=== PATIENT | female | born 2000 | race Caucasian/White ===

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

== ENCOUNTER 2021-04-16 16:01 | Emergency (ER) | payer OTHER ==
[~2021-04-16] VITALS: Ht 144.7 cm; Wt 81.6 kg
[~2021-04-16 16:01] MED LIST: Kenalog 0.5% Cr15 GM T; VIBRAMYCIN100 MG PO
[2021-04-16] MEDS ORDERED: PREDNISONE20 M1 PO (16:24)
== END 2021-04-16 16:33 | disposition home or self-care (01) ==
LOC: ED 16:01
DX: T63.441A Toxic effect of venom of bees, accidental (unintentional), initial encounter (principal); Z88.8 Allergy status to other drugs, medicaments and biological substances; Z79.899 Other long term (current) drug therapy; Y92.89 Other specified places as the place of occurrence of the external cause

== ENCOUNTER 2025-08-27 00:42 | Emergency (ER) | payer BC ==
[~2025-08-27] VITALS: Ht 147.3 cm; Wt 86.2 kg
[~2025-08-27 00:42] MED LIST changes: +PREDNISONE20 M1 PO
[2025-08-27] MEDS ORDERED: SODIUM CHLORIDE 0.9% 1,000 ML IV ONE (01:30)
[2025-08-27] MEDS ORDERED: Ondansetron Hydrochloride 4 MG/2 ML VIAL IV ONE (01:35)
[2025-08-27 01:44] LABS: BASO # 0.1 10*3/uL (0.0-0.1); BASO % 0.6 % (0.0-1.0); EOS # 0.1 10*3/uL (0.0-0.4); EOS % 0.7 % (1.0-4.0); MEAN CELL VOLUME 82.0 fl (81.0-99.0); MEAN CORPUSCULAR HGB 26.5 pg (27.0-31.0); MEAN PLATELET VOLUME 8.4 fl (9.6-12.3); MONO # 1.1 10*3/uL (0.1-1.0); MONO % 6.2 % (3.0-9.0); NEUT # 13.4 10*3/uL (2.3-7.9); NEUT % 74.7 % (47.0-73.0); NUCLEATED RED BLOOD CELL 0.0 % (0.0-0.0); NUCLEATED RED BLOOD CELL 0.0 10*3/uL (0.0-0.0); PLATELET COUNT AUTOMATED 339 10*3/uL (130-400); RED CELL DISTRI WIDTH 13.4 % (0-14.5)
[2025-08-27 01:47] LABS: BILIRUBIN Negative (Negative); BLOOD 3+ (Negative); CLARITY Cloudy (Clear); COLOR Orange (Yellow); KETONE Negative (Negative); LEUKO ESTERASE Trace (Negative); NITRITE Negative (Negative); PH 6.0 (4.5-8.0); SPECIFIC GRAVITY >= 1.030 (1.001-1.030); UROBILINOGEN 1.0 E.U./dl (0.0-1.0)
[2025-08-27 02:02] LABS: BUN 11 mg/dl (9-23)
[2025-08-27 02:03] LABS: BACTERIA 1+; RBC TNTC rbc/hpf (0-2)
[2025-08-27] MEDS ORDERED: PERCOCET 5-3251 EACH PO ×2 (03:21→11:09)
[2025-08-27] MEDS ORDERED: Acetaminophen/Oxycodone 5 MG/325 MG TABLET PO ONE (03:25)
== END 2025-08-27 03:36 | disposition home or self-care (01) ==
LOC: ED 00:42
PROVIDERS: Emergency Medicine
DX: N20.0 Calculus of kidney (principal); Z79.899 Other long term (current) drug therapy; Z88.0 Allergy status to penicillin; Z88.8 Allergy status to other drugs, medicaments and biological substances